=== PATIENT | female | born 1965 | race American Indian/Alaskan Native ===

== ENCOUNTER 2022-03-31 14:30 | Emergency (ER) | payer MEDICAID, OTHER ==
[2022-03-31] MEDS ORDERED: Ibuprofen 600 MG Tab PO ONE (14:32)
[2022-03-31] MEDS ORDERED: Cyclobenzaprine 10 MG Tab PO ONE (14:32)
== END 2022-03-31 16:25 | disposition home or self-care (01) ==
LOC: MERGE 14:30 → MW.ED 14:30
DX: S09.90XA Unspecified injury of head, initial encounter (principal); Z79.899 Other long term (current) drug therapy; Z79.84 Long term (current) use of oral hypoglycemic drugs; V49.50XA Passenger injured in collision with unspecified motor vehicles in traffic accident, initial encounter; Y92.410 Unspecified street and highway as the place of occurrence of the external cause
CPT/HCPCS: 70450; 71045; 72125; 99284; A9270